=== PATIENT | female | born 1980 | race Caucasian/White ===

== ENCOUNTER 2020-06-24 13:32 | Emergency (ER) | payer OTHER ==
[~2020-06-24 13:32] MED LIST: AMBIEN5 MG PO; DIPHENOXYLAT-AT60 ML PO; FOLIC ACID1 MG PO; IMITREX50 MG PO; MAXALT10 MG PO; MECLIZINE HCL25 MG PO; PAMELOR75 MG PO; PROTONIX 40 MG40 M1 PO; PROTONIX40 M1 PO; ZANAFLEX4 M1 PO; ZOFRAN4 MG PO
[2020-06-24] MEDS ORDERED: CYCLOBENZAPRINE10 MG PO (16:31)
== END 2020-06-24 17:06 | disposition home or self-care (01) ==
LOC: ER1 13:32
DX: S39.012A Strain of muscle, fascia and tendon of lower back, initial encounter (principal); S29.012A Strain of muscle and tendon of back wall of thorax, initial encounter; S80.12XA Contusion of left lower leg, initial encounter; V49.40XA Driver injured in collision with unspecified motor vehicles in traffic accident, initial encounter; Z88.0 Allergy status to penicillin; Z88.2 Allergy status to sulfonamides; Y92.410 Unspecified street and highway as the place of occurrence of the external cause
CPT/HCPCS: 70450; 72072; 72100; 72125; 72128; 72131; 73502; 73552; 73590; 99284

== ENCOUNTER 2020-09-12 14:46 | Emergency (ER) | payer OTHER ==
[~2020-09-12 14:46] MED LIST changes: +CYCLOBENZAPRINE10 MG PO
[2020-09-12] MEDS ORDERED: CELEBREX100 MG PO (19:17)
[2020-09-12] MEDS ORDERED: CYCLOBENZAPRINE10 MG PO (19:17)
== END 2020-09-12 19:49 | disposition home or self-care (01) ==
LOC: ER1 14:46
DX: M54.5 Low back pain (principal); I10 Essential (primary) hypertension; F17.200 Nicotine dependence, unspecified, uncomplicated; Z88.0 Allergy status to penicillin; Z88.2 Allergy status to sulfonamides
CPT/HCPCS: 72131; 96374; 96375; 99284; J2270; J2360; J2930

== ENCOUNTER 2020-11-12 13:51 | Emergency (ER) | payer OTHER ==
[~2020-11-12 13:51] MED LIST changes: +CELEBREX100 MG PO
[2020-11-12 17:04] LABS: HEMOGLOBIN 13.5 gm/dl (12.3-15.3); RED BLOOD COUNT 4.44 M/UL (4.00-5.10); WHITE BLOOD COUNT 10.4 K/UL (4.5-11.0)
[2020-11-12 17:44] LABS: BUN/CREATININE RATIO 18 (0-10)
[2020-11-12] MEDS ORDERED: ZOFRAN ODT 4 MG4 MG PO (18:44)
== END 2020-11-12 18:54 | disposition home or self-care (01) ==
LOC: ER1 13:51
PROVIDERS: Emergency Medicine
DX: R10.30 Lower abdominal pain, unspecified (principal); E11.9 Type 2 diabetes mellitus without complications; I10 Essential (primary) hypertension; F17.210 Nicotine dependence, cigarettes, uncomplicated
CPT/HCPCS: 70450; 71045; 80053; 81001; 82550; 82553; 82962; 83605; 83690; 84484; 84703; 85025; 85379; 93005; 99284

== ENCOUNTER 2021-05-22 15:59 | Emergency (ER) | payer OTHER ==
[~2021-05-22 15:59] MED LIST changes: +ZOFRAN ODT 4 MG4 MG PO
[2021-05-22 16:40] LABS: RED BLOOD COUNT 4.94 M/UL (4.00-5.10); WHITE BLOOD COUNT 10.1 K/UL (4.5-11.0)
[2021-05-22 16:58] LABS: BUN/CREATININE RATIO 13 (0-10)
== END 2021-05-22 17:20 | disposition home or self-care (01) ==
LOC: ER1 15:59
PROVIDERS: Physician Assistant
DX: E11.649 Type 2 diabetes mellitus with hypoglycemia without coma (principal); R63.8 Other symptoms and signs concerning food and fluid intake; F17.210 Nicotine dependence, cigarettes, uncomplicated; E11.40 Type 2 diabetes mellitus with diabetic neuropathy, unspecified; Z88.0 Allergy status to penicillin; Z88.2 Allergy status to sulfonamides
CPT/HCPCS: 80053; 83690; 85025; 99283

== ENCOUNTER 2021-07-17 08:01 | Emergency (ER) | payer OTHER ==
[2021-07-17 08:54] LABS: HEMOGLOBIN 15.2 gm/dl (12.3-15.3); RED BLOOD COUNT 5.03 M/UL (4.00-5.10)
[2021-07-17 09:11] LABS: BUN/CREATININE RATIO 12 (0-10)
== END 2021-07-17 12:40 | disposition home or self-care (01) ==
LOC: ER1 08:01
PROVIDERS: Family Medicine
DX: R10.9 Unspecified abdominal pain (principal); R10.813 Right lower quadrant abdominal tenderness
CPT/HCPCS: 80053; 81001; 83605; 83690; 85025; 96374; 96375; 99284; J1885; J2270; J2405; Q9967

== ENCOUNTER → 2021-09-15 | Outpatient (CLI) | payer OTHER ==
[~2021-09-15] MED LIST changes: +BENADRYL25 MG PO; +EMGALITY120 MG/1 M SQ; +LIPITOR TAB 2020 MG PO; +LISINOPRIL20 MG PO; +LOW DOSE ASPIRI81 MG PO; +OZEMPIC; +PRAZOSIN HCL1 MG PO; +RIZATRIPTAN10 MG PO; +VENTOLIN; +[UNRECOGNIZED DRUG - OTHER]
[2021-09-15 14:41] LABS: BUN/CREATININE RATIO 13 (0-10)
== END ==
LOC: OPSV2 12:28
PROVIDERS: Orthopaedic Surgery
DX: Z01.812 Encounter for preprocedural laboratory examination (principal); G56.22 Lesion of ulnar nerve, left upper limb
CPT/HCPCS: 80048

== ENCOUNTER 2021-09-19 12:40 | Emergency (ER) | payer OTHER ==
[2021-09-19 13:52] LABS: HEMOGLOBIN 15.9 gm/dl (12.3-15.3); RED BLOOD COUNT 5.18 M/UL (4.00-5.10); WHITE BLOOD COUNT 10.6 K/UL (4.5-11.0)
[2021-09-19 14:12] LABS: BUN/CREATININE RATIO 19 (0-10)
== END 2021-09-19 16:40 | disposition home or self-care (01) ==
LOC: ER1 12:40
PROVIDERS: Emergency Medicine
DX: E11.649 Type 2 diabetes mellitus with hypoglycemia without coma (principal); R55 Syncope and collapse; R19.7 Diarrhea, unspecified; I10 Essential (primary) hypertension; E78.5 Hyperlipidemia, unspecified; E11.40 Type 2 diabetes mellitus with diabetic neuropathy, unspecified; G43.909 Migraine, unspecified, not intractable, without status migrainosus; F17.200 Nicotine dependence, unspecified, uncomplicated; Z20.822 Contact with and (suspected) exposure to COVID-19
CPT/HCPCS: 70450; 71045; 80053; 81001; 82550; 82553; 83880; 84484; 85025; 93005; 99285; U0002

== ENCOUNTER → 2021-09-23 | Day surgery (SDC) | payer OTHER | END | disposition home or self-care (01) | LOC: OR 05:15 | DX: G56.22 Lesion of ulnar nerve, left upper limb (principal); G56.02 Carpal tunnel syndrome, left upper limb; I10 Essential (primary) hypertension; E78.5 Hyperlipidemia, unspecified; J45.909 Unspecified asthma, uncomplicated; E11.40 Type 2 diabetes mellitus with diabetic neuropathy, unspecified; F17.210 Nicotine dependence, cigarettes, uncomplicated; Z79.82 Long term (current) use of aspirin; Z88.0 Allergy status to penicillin; Z88.2 Allergy status to sulfonamides | CPT/HCPCS: 82962; 84703; J1100; J1170; J1885; J2250; J2370; J2405; J2704; J3010 ==

== ENCOUNTER 2021-10-24 18:52 | Emergency (ER) | payer OTHER ==
[2021-10-24 19:52] LABS: HEMOGLOBIN 15.4 gm/dl (12.3-15.3); RED BLOOD COUNT 5.04 M/UL (4.00-5.10); WHITE BLOOD COUNT 10.2 K/UL (4.5-11.0)
[2021-10-24 20:22] LABS: BUN/CREATININE RATIO 11 (0-10)
[2021-10-25] MEDS ORDERED: HYDROCODON-ACE1 EAC4 PO (00:38)
== END 2021-10-25 01:35 | disposition home or self-care (01) ==
LOC: ER1 18:52
PROVIDERS: Physician Assistant
DX: M25.512 Pain in left shoulder (principal); M25.522 Pain in left elbow; I10 Essential (primary) hypertension; E11.40 Type 2 diabetes mellitus with diabetic neuropathy, unspecified; F17.210 Nicotine dependence, cigarettes, uncomplicated; Z88.0 Allergy status to penicillin
CPT/HCPCS: 73080; 80053; 85025; 85652; 86140; 99283